=== PATIENT | female | born 1975 | race Caucasian/White ===

== ENCOUNTER → 2018-05-30 | Outpatient (REF) | payer OTHER, BC ==
[~2018-05-30] MED LIST: MAPA500T2 PO; MOM30SS PO; MOTR200T44 PO; PRENTAB26 PO
[2018-05-30 15:06] LABS: INFLUENZA A AMPLIFICATION POSITIVE (NEGATIVE); INFLUENZA B AMPLIFICATION NEGATIVE (NEGATIVE)
== END ==
LOC: M LAB REF 14:13
PROVIDERS: ATTEND Physician Assistant
DX: J11.1 Influenza due to unidentified influenza virus with other respiratory manifestations (principal)

== ENCOUNTER 2018-08-05 13:28 | Emergency (ER) | payer OTHER, BC ==
[~2018-08-05] VITALS: Ht 167.6 cm; Wt 82.7 kg
[2018-08-05] MEDS ORDERED: KETOROLAC 60 MG/2 ML VIAL (J1885) IM ONE (14:15)
[2018-08-05] MEDS ORDERED: NAPR-837 PO (14:55)
[2018-08-05 14:59] VITALS: BP 115/68
--- NOTE | 2018-08-06 07:20 | REP ---
REASON FOR EXAM: Known superficial thrombophlebitis with pain and swelling. TECHNIQUE: Multiple ultrasonographic images of the deep venous structures of the left thigh were obtained from the common femoral vein to the popliteal vein along with Doppler interrogation and color flow Doppler images. FINDINGS: There is no abnormal echogenic material seen within any of the visualized deep venous structures that would suggest acute thrombosis. Coaptation is unremarkable throughout. Doppler interrogation shows an expected response to respiratory variability and augmentation. The color flow images show what appears to be a normal vascular pattern throughout. IMPRESSION: There is no ultrasonographic evidence of deep venous thrombosis involving any of the visualized deep venous structures of the left thigh, as described above. Electronically Signed by Aaron Montano DO 08/06/2018 08:37 A
== END 2018-08-05 15:01 | disposition home or self-care (01) ==
LOC: M ED 13:28
DX: I80.02 Phlebitis and thrombophlebitis of superficial vessels of left lower extremity (principal); I73.9 Peripheral vascular disease, unspecified; Z88.0 Allergy status to penicillin; F17.210 Nicotine dependence, cigarettes, uncomplicated
CPT/HCPCS: 93971; 96372; 99283; J1885

== ENCOUNTER → 2019-09-10 | Outpatient (REF) | payer OTHER, BC ==
[~2019-09-10] MED LIST changes: +NAPR-837 PO
[2019-09-10 18:37] LABS: HEMATOCRIT 41.1 % (36.0-47.0); HEMOGLOBIN 13.9 g/dl (12.0-15.5); MEAN CORPUSCULAR HEMOGLOBIN 32.7 pg (27.0-33.0); MEAN CORPUSCULAR HGB CONC 33.8 g/dl (32.0-36.5); MEAN CORPUSCULAR VOLUME 96.7 fl (80.0-96.0); PLATELET COUNT, AUTOMATED 326 10^3/uL (150-450); RED BLOOD COUNT 4.25 10^6/uL (4.00-5.40); WHITE BLOOD COUNT 9.5 10^3/uL (4.0-10.0)
[2019-09-10 19:07] LABS: ALBUMIN 3.8 GM/DL (3.2-5.2); ALT/SGPT 130 U/L (12-78); BILIRUBIN,TOTAL 0.5 MG/DL (0.2-1.0); BLOOD UREA NITROGEN 16 MG/DL (7-18); CALCIUM LEVEL 9.1 MG/DL (8.5-10.1); CARBON DIOXIDE LEVEL 28 MEQ/L (21-32); CHLORIDE LEVEL 103 MEQ/L (98-107); CREATININE FOR GFR 0.99 MG/DL (0.55-1.30); GLOMERULAR FILTRATION RATE > 60.0 (>58); GLUCOSE, FASTING 84 MG/DL (70-100); POTASSIUM SERUM 4.5 MEQ/L (3.5-5.1); SODIUM LEVEL 137 MEQ/L (136-145); TOTAL PROTEIN 7.3 GM/DL (6.4-8.2)
[2019-09-11 08:36] LABS: TOTAL 25(OH) VITAMIN D 26.2 NG/ML (30.0-100.0)
== END ==
LOC: M SFHCPLAZ 15:51
PROVIDERS: ATTEND Physician Assistant
DX: F41.9 Anxiety disorder, unspecified (principal); F41.0 Panic disorder [episodic paroxysmal anxiety]; K21.9 Gastro-esophageal reflux disease without esophagitis; E55.9 Vitamin D deficiency, unspecified

== ENCOUNTER → 2019-10-07 | Outpatient (CLI) | payer OTHER, BC ==
[2019-10-07 12:28] LABS: INR 1.02; PROTHROMBIN TIME 13.1 SECONDS (11.8-14.0)
[2019-10-07 12:29] LABS: PARTIAL THROMBOPLASTIN TIME 25.2 SECONDS (25.0-38.4)
[2019-10-07 12:33] LABS: BASO % 0.4 % (0.0-1.0); EOS # 0.5 10^3/uL (0.0-0.5); EOS % 5.6 % (0.0-3.0); HEMATOCRIT 40.9 % (36.0-47.0); HEMOGLOBIN 13.7 g/dl (12.0-15.5); LYMPH # 1.3 10^3/uL (1.5-5.0); LYMPH % 13.6 % (24.0-44.0); MEAN CORPUSCULAR HEMOGLOBIN 32.6 pg (27.0-33.0); MEAN CORPUSCULAR HGB CONC 33.5 g/dl (32.0-36.5); MEAN CORPUSCULAR VOLUME 97.4 fl (80.0-96.0); MONO # 0.5 10^3/uL (0.0-0.8); MONO % 5.6 % (0.0-5.0); NEUTROPHILS % 74.3 % (36.0-66.0); PLATELET COUNT, AUTOMATED 327 10^3/uL (150-450); WHITE BLOOD COUNT 9.5 10^3/uL (4.0-10.0)
[2019-10-07 12:38] LABS: ALBUMIN 3.7 GM/DL (3.2-5.2); ALT/SGPT 147 U/L (12-78); BILIRUBIN,TOTAL 0.3 MG/DL (0.2-1.0); BLOOD UREA NITROGEN 15 MG/DL (7-18); CALCIUM LEVEL 9.1 MG/DL (8.5-10.1); CARBON DIOXIDE LEVEL 26 MEQ/L (21-32); CHLORIDE LEVEL 104 MEQ/L (98-107); CREATININE FOR GFR 0.94 MG/DL (0.55-1.30); GLOMERULAR FILTRATION RATE > 60.0 (>58); GLUCOSE, FASTING 103 MG/DL (70-100); POTASSIUM SERUM 4.1 MEQ/L (3.5-5.1); SODIUM LEVEL 140 MEQ/L (136-145)
== END ==
LOC: M WUC 10:52
PROVIDERS: ATTEND Physician Assistant
DX: R23.3 Spontaneous ecchymoses (principal)

== ENCOUNTER → 2019-10-25 | Outpatient (CLI) | payer OTHER, BC ==
--- NOTE | 2019-11-13 11:04 | REPMRS ---
Patient History The patient states she had a clinical breast exam in 09/2019. No known family history of cancer. No Hormone Replacement Therapy Digital Woman Screen Mammo: October 25, 2019 - Exam #: [id number] Bilateral CC and MLO view(s) were taken. Technologist: Carmina Meek, Technologist No prior studies available for comparison. FINDINGS: The breast tissue is heterogeneously dense. This may lower the sensitivity of mammography. The Volpara volumetric breast density category is: C. There is a 13 mm, well circumscribed nodular density in the subareolar regoin of the right breast which merits further evaluation. There is also a grouping of microcalcifications in the medial aspect of the right breast which merits further evaluation. There is no other evidence of dominant mass, architectural distortion, or grouped microcalcification typical of malignancy. 3-D tomosynthesis shows no additional findings. Report was delayed due to a protracted computer network disruption experienced by this facility. Assessment: BI-RADS/ACR category 0 mammogram, Incomplete: Need additional imaging evaluation and/or prior mammograms for comparison. Recommendation Ultrasound and special view mammogram of the right breast. This patient's Lifetime Breast Cancer RIsk is estimated at 11.1 %. This mammogram was interpreted with the aid of an FDA-approved computer-aided dectection system. Electronically Signed By: Shantanu Montaño MD 11/13/19 [id number]
== END ==
LOC: M WHC 17:46
PROVIDERS: ATTEND Obstetrics & Gynecology
DX: R92.2 Inconclusive mammogram (principal)

== ENCOUNTER → 2019-11-29 | Outpatient (CLI) | payer OTHER, BC ==
--- NOTE | 2019-12-19 11:56 | REP ---
DIAGNOSTIC MAMMOGRAM RIGHT BREAST AND RIGHT BREAST ULTRASOUND TECHNIQUE: Multiple spot compression magnification views of the right breast are performed and correlated with the recent baseline mammogram of 10/25/2019. These confirm the presence of a 13 mm fairly well circumscribed nodule in the right retroareolar region. Tiny calcifications are again visualized in the upper inner right breast. These appear to have a somewhat spherical orientation with linear calcifications along the periphery. I suspect these represent early calcifications of fat necrosis. They are probably benign. Real-time sonographic evaluation of the right retroareolar region is performed. At that location, a hypoechoic nodule is seen with internal blood flow with duplex Doppler evaluation. It measures 13 x 11 x 8 mm. IMPRESSION: ACR 4 suspicious. Right retroareolar nodule seen by mammography is solid by ultrasound. Recommend ultrasound-guided biopsy. Tiny calcifications in the upper inner right breast anteriorly demonstrate an appearance on magnification views, which are most suggestive of early calcifications of fat necrosis. These are probably benign. Recommend a six month follow-up mammogram of the right breast. However, if the patient or referring clinician would prefer biopsy, stereotactic biopsy could be performed. Patient letter 4. MTDD
== END ==
LOC: M WHC 08:07
PROVIDERS: ATTEND Obstetrics & Gynecology
DX: Z12.31 Encounter for screening mammogram for malignant neoplasm of breast (principal); N63.10 Unspecified lump in the right breast, unspecified quadrant; N60.01 Solitary cyst of right breast

== ENCOUNTER 2020-02-26 11:55 | Emergency (ER) | payer OTHER, BC ==
[~2020-02-26] VITALS: Ht 167.6 cm; Wt 92.3 kg
[2020-02-26] MEDS ORDERED: OMEP10CASR PO (12:08)
[2020-02-26 14:10] LABS: BASO % 0.6 % (0.0-1.0); EOS # 0.3 10^3/uL (0.0-0.5); EOS % 3.6 % (0.0-3.0); HEMATOCRIT 39.7 % (36.0-47.0); HEMOGLOBIN 12.9 g/dl (12.0-15.5); LYMPH # 1.7 10^3/uL (1.5-5.0); LYMPH % 23.6 % (24.0-44.0); MEAN CORPUSCULAR HEMOGLOBIN 31.5 pg (27.0-33.0); MEAN CORPUSCULAR HGB CONC 32.5 g/dl (32.0-36.5); MEAN CORPUSCULAR VOLUME 97.1 fl (80.0-96.0); MONO # 0.5 10^3/uL (0.0-0.8); MONO % 6.9 % (0.0-5.0); NEUTROPHILS # 4.6 10^3/uL (1.5-8.5); NEUTROPHILS % 64.9 % (36.0-66.0); PLATELET COUNT, AUTOMATED 262 10^3/uL (150-450); RED BLOOD COUNT 4.09 10^6/uL (4.00-5.40); WHITE BLOOD COUNT 7.1 10^3/uL (4.0-10.0)
[2020-02-26 14:31] LABS: BLOOD UREA NITROGEN 20 MG/DL (7-18); CALCIUM LEVEL 8.7 MG/DL (8.5-10.1); CARBON DIOXIDE LEVEL 25 MEQ/L (21-32); CHLORIDE LEVEL 107 MEQ/L (98-107); CREATININE FOR GFR 1.06 MG/DL (0.55-1.30); GLOMERULAR FILTRATION RATE > 60.0 (>58); GLUCOSE, FASTING 102 MG/DL (70-100); POTASSIUM SERUM 4.3 MEQ/L (3.5-5.1); SODIUM LEVEL 137 MEQ/L (136-145)
[2020-02-26 14:43] LABS: VITAMIN B12 LEVEL 731 PG/ML (247-911)
[2020-02-26 15:16] VITALS: BP 125/86
== END 2020-02-26 15:17 | disposition home or self-care (01) ==
LOC: M ED 11:55
DX: R20.2 Paresthesia of skin (principal); Z86.718 Personal history of other venous thrombosis and embolism; F41.9 Anxiety disorder, unspecified; F17.200 Nicotine dependence, unspecified, uncomplicated; Z88.0 Allergy status to penicillin

== ENCOUNTER → 2020-02-28 | Outpatient (REF) | payer OTHER, BC ==
[~2020-02-28] MED LIST changes: +OMEP10CASR PO
[2020-02-28 13:33] LABS: C REACTIVE PROTEIN QUANTITATIV < 0.30 MG/DL (0.00-0.30); FREE T4 1.06 NG/DL (0.76-1.46); MAGNESIUM LEVEL 2.1 MG/DL (1.8-2.4)
== END ==
LOC: M SFHCPLAZ 11:58
PROVIDERS: ATTEND Nurse Practitioner Family
DX: R20.2 Paresthesia of skin (principal)

== ENCOUNTER → 2020-03-04 | Outpatient (CLI) | payer OTHER, BC ==
[2020-03-04 15:45] LABS: RHEUMATOID FACTOR QUANT < 10.0 IU/ML (<15.0); TOTAL PROTEIN 7.7 GM/DL (6.4-8.2)
[2020-03-04 16:30] LABS: HEMOGLOBIN A1c 5.4 %
[2020-03-06 11:21] LABS: ALBUMIN 4.43 GM/DL (3.29-5.55); ALBUMIN % 57.5 % (55.8-66.1); ALPHA-1-GLOBULIN % 4.2 % (2.9-4.9); ALPHA-1-GLOBULINS 0.32 GM/DL (0.17-0.41); ALPHA-2-GLOBULINS 0.89 GM/DL (0.42-0.99); ALPHA-2-GLOBULINS % 11.5 % (7.1-11.8); BETA-1-GLOBULINS % 6.8 % (4.7-7.2)
[2020-03-06 11:22] LABS: BETA-1-GLOBULINS 0.52 GM/DL (0.28-0.60); BETA-2-GLOBULINS 0.54 GM/DL (0.19-0.55)
[2020-03-09 16:11] LABS: ANTINUCLEAR ANTIBODIES DIRECT Negative (Negative); VITAMIN B1 LEVEL WHOLE BLOOD 152.8 nmol/L (66.5-200.0); VITAMIN B6,PYRIDOXAL PHOSPHATE 31.6 ug/L (2.0-32.8); VITAMIN E(ALPHA TOCOPHEROL) 12.2 mg/L (7.0-25.1); VITAMIN E(GAMMA TOCOPHEROL) 1.7 mg/L (0.5-5.5)
== END ==
LOC: M PLALAB 13:20
PROVIDERS: ATTEND Psychiatry & Neurology Neurology
DX: G62.9 Polyneuropathy, unspecified (principal); R20.0 Anesthesia of skin

== ENCOUNTER → 2020-05-04 | Outpatient (CLI) | payer OTHER, BC | LOC: M PLALAB 13:39 | DX: G37.3 Acute transverse myelitis in demyelinating disease of central nervous system (principal) ==

== ENCOUNTER → 2020-05-06 | Outpatient (CLI) | payer OTHER, BC ==
[2020-05-06 18:45] LABS: PLATELET COUNT, AUTOMATED 326 10^3/uL (150-450)
[2020-05-06 18:55] LABS: INR 0.81; PROTHROMBIN TIME 11.4 SECONDS (12.5-14.3)
== END ==
LOC: M PLALAB 14:57
DX: G37.3 Acute transverse myelitis in demyelinating disease of central nervous system (principal)

== ENCOUNTER → 2020-07-02 | Outpatient (CLI) | payer OTHER, BC | LOC: M WUC 11:45 | DX: G37.3 Acute transverse myelitis in demyelinating disease of central nervous system (principal); D72.9 Disorder of white blood cells, unspecified ==

== ENCOUNTER → 2020-10-25 | Outpatient (REF) | payer OTHER, BC | LOC: M WUC 19:47 | PROVIDERS: ATTEND Physician Assistant | DX: R30.0 Dysuria (principal) ==

== ENCOUNTER → 2020-12-04 | Outpatient (CLI) | payer OTHER, BC ==
[~2020-12-04] MED LIST changes: +GASTROGRAFIN SOLUTION 30ML (Q9963) As Ordered ONE
--- NOTE | 2020-12-06 04:48 | REP ---
INDICATION: WT LOSS COMPARISON: None TECHNIQUE: Axial images from the lung bases to the pubic symphysis with coronal and sagittal reformations after the administration of oral contrast material. This CT examination was performed using the following dose reduction techniques: Automated exposure control, adjustment of mA and/or kv according to the patient's size, and use of iterative reconstruction technique. FINDINGS: Lung bases are clear. Visualized heart and pericardium normal. Liver, spleen, pancreas, gallbladder, bilateral adrenal glands and kidneys are normal. The enteric system is unremarkable and without obstruction or acute inflammatory process. Normal terminal ileum and cecum identified in the right lower quadrant. Pelvis demonstrates normal bladder and age-appropriate uterus/adnexa. No ascites. No free air. No adenopathy. No focal inflammatory stranding. Abdominal aorta without aneurysm. Musculoskeletal structures are intact and without acute osseous abnormality. IMPRESSION: No acute abdominopelvic pathology appreciated. <Electronically signed by Froylan Schulz > 12/06/20 [id number]
== END ==
LOC: M RAD 10:26
PROVIDERS: ATTEND Physician Assistant
DX: R63.4 Abnormal weight loss (principal)
CPT/HCPCS: 74176; Q9963

== ENCOUNTER → 2021-08-29 | Outpatient (CLI) | payer BC ==
[~2021-08-29] MED LIST changes: +ERGO500029 PO; -GASTROGRAFIN SOLUTION 30ML (Q9963) As Ordered ONE; +ONDA4TAB6
== END ==
LOC: M LABSMTC 10:31
PROVIDERS: ATTEND Anesthesiology
DX: Z01.812 Encounter for preprocedural laboratory examination (principal)

== ENCOUNTER 2021-09-03 10:17 | Day surgery (SDC) | payer BC ==
[~2021-09-03] VITALS: Ht 167.6 cm; Wt 78.5 kg
[~2021-09-03 10:17] MED LIST changes: +NS 1,000 ML IV ONE
[2021-09-03] MEDS ORDERED: LIDOCAINE 2% 100MG/5ML SDV (FOR ANES.) As Ordered ONE (11:06)
[2021-09-03] MEDS ORDERED: propofoL 200 MG/20 ML VIAL As Ordered ONE ×2 (11:06→11:55)
[2021-09-03] MEDS ORDERED: fentaNYL 100 MCG/2 ML INJECTION As Ordered ONE (11:31)
[2021-09-03 12:20] VITALS: BP 133/83
== END 2021-09-03 12:37 | disposition home or self-care (01) ==
LOC: M OPP 10:17
PROVIDERS: ATTEND Internal Medicine Gastroenterology
DX: K63.5 Polyp of colon (principal); K64.8 Other hemorrhoids; R19.4 Change in bowel habit; R63.4 Abnormal weight loss; R11.0 Nausea; Z80.6 Family history of leukemia; Z79.899 Other long term (current) drug therapy; F17.200 Nicotine dependence, unspecified, uncomplicated
CPT/HCPCS: 43235; 45385; 88305; J3010

== ENCOUNTER → 2022-04-12 | Outpatient (CLI) | payer BC ==
[~2022-04-12] MED LIST changes: -NS 1,000 ML IV ONE
[2022-04-12 12:35] LABS: BASO # 0.1 10^3/uL (0.0-0.2); BASO % 0.9 % (0.0-1.0); EOS # 0.2 10^3/uL (0.0-0.5); EOS % 3.2 % (0.0-3.0); HEMATOCRIT 42.2 % (36.0-47.0); HEMOGLOBIN 13.5 g/dl (12.0-15.5); LYMPH # 1.6 10^3/uL (1.5-5.0); LYMPH % 21.7 % (24.0-44.0); MEAN CORPUSCULAR HEMOGLOBIN 31.5 pg (27.0-33.0); MEAN CORPUSCULAR VOLUME 98.6 fl (80.0-96.0); MONO # 0.5 10^3/uL (0.0-0.8); MONO % 7.1 % (2.0-8.0); NEUTROPHILS % 66.6 % (36.0-66.0); PLATELET COUNT, AUTOMATED 456 10^3/uL (150-450); RED BLOOD COUNT 4.28 10^6/uL (4.00-5.40); WHITE BLOOD COUNT 7.5 10^3/uL (4.0-10.0)
[2022-04-12 13:09] LABS: FREE T4 1.22 NG/DL (0.89-1.76); THYROID STIMULATING HORMONE 1.721 uIU/ML (0.55-4.78)
[2022-04-12 13:10] LABS: HEMOGLOBIN A1c 4.9 % (4.0-6.0); LUTEINIZING HORMONE 23.2 mIU/ML; PROLACTIN 4.41 NG/ML
[2022-04-12 13:12] LABS: ALBUMIN 3.9 G/DL (3.2-5.2); ALKALINE PHOSPHATASE 112 U/L (46-116); ALT/SGPT 66 U/L (7.0-40); AST/SGOT 44 U/L (<34); BILIRUBIN,TOTAL 0.3 MG/DL (0.3-1.2); BLOOD UREA NITROGEN 20 MG/DL (9-23); CALCIUM LEVEL 9.8 MG/DL (8.5-10.1); CARBON DIOXIDE LEVEL 28 MMOL/L (20-31); CHLORIDE LEVEL 101 MMOL/L (98-107); CHOLESTEROL LEVEL 194 MG/DL (<200); CHOLESTEROL RISK RATIO 2.01 (<5); CREATININE FOR GFR 0.77 MG/DL (0.55-1.30); GLOMERULAR FILTRATION RATE > 60.0 (>58); GLUCOSE, FASTING 86 MG/DL (60-100); HDL CHOLESTEROL 96.2 MG/DL (>40); NON-HDL-C 98 MG/DL; POTASSIUM SERUM 4.2 MMOL/L (3.5-5.1); SODIUM LEVEL 138 MMOL/L (136-145); TOTAL PROTEIN 7.6 G/DL (5.7-8.2); TRIGLYCERIDES LEVEL 84 MG/DL (<150)
== END ==
LOC: M WUC 10:02
PROVIDERS: ATTEND Physician Assistant
DX: N92.6 Irregular menstruation, unspecified (principal); K21.9 Gastro-esophageal reflux disease without esophagitis; E55.9 Vitamin D deficiency, unspecified; Z68.22 Body mass index [BMI] 22.0-22.9, adult

== ENCOUNTER → 2022-04-18 | Outpatient (CLI) | payer BC | LOC: M RAD 15:33 | PROVIDERS: ATTEND Physician Assistant | DX: N92.6 Irregular menstruation, unspecified (principal) ==

== ENCOUNTER → 2022-05-31 | Outpatient (CLI) | payer BC | LOC: M RAD 09:35 | PROVIDERS: ATTEND Surgery Vascular Surgery | DX: I87.2 Venous insufficiency (chronic) (peripheral) (principal); I83.813 Varicose veins of bilateral lower extremities with pain ==

== ENCOUNTER → 2022-06-24 | Outpatient (REF) | payer BC | LOC: M SFHCADAM 16:04 | PROVIDERS: ATTEND Physician Assistant | DX: R09.89 Other specified symptoms and signs involving the circulatory and respiratory systems (principal) ==

== ENCOUNTER → 2022-07-05 | Outpatient (CLI) | payer BC ==
[2022-07-05 17:50] LABS: ALBUMIN 3.7 G/DL (3.2-5.2); BILIRUBIN,DIRECT 0.3 MG/DL (<0.4); BILIRUBIN,TOTAL 0.8 MG/DL (0.3-1.2); TOTAL PROTEIN 6.8 G/DL (5.7-8.2)
== END ==
LOC: M WUC 11:22
PROVIDERS: ATTEND Physician Assistant
DX: R74.8 Abnormal levels of other serum enzymes (principal)

== ENCOUNTER → 2022-11-18 | Outpatient (CLI) | payer BC | LOC: M WHC 10:40 | PROVIDERS: ATTEND Obstetrics & Gynecology | DX: N89.8 Other specified noninflammatory disorders of vagina (principal) ==

== ENCOUNTER → 2022-11-29 | Outpatient (REF) | payer BC | LOC: M LAB REF 11:38 | PROVIDERS: ATTEND Physician Assistant Medical | DX: R07.0 Pain in throat (principal) ==

== ENCOUNTER → 2023-01-20 | Outpatient (CLI) | payer BC ==
[2023-01-20 17:28] LABS: BASO # 0.1 10^3/uL (0.0-0.2); BASO % 1.3 % (0.0-1.0); EOS # 0.4 10^3/uL (0.0-0.5); EOS % 7.2 % (0.0-3.0); HEMATOCRIT 41.8 % (36.0-47.0); HEMOGLOBIN 13.4 g/dl (12.0-15.5); LYMPH # 1.4 10^3/uL (1.5-5.0); MEAN CORPUSCULAR HGB CONC 32.1 g/dl (32.0-36.5); MEAN CORPUSCULAR VOLUME 99.8 fl (80.0-96.0); MONO # 0.6 10^3/uL (0.0-0.8); MONO % 9.1 % (2.0-8.0); NEUTROPHILS # 3.6 10^3/uL (1.5-8.5); NEUTROPHILS % 59.1 % (36.0-66.0); PLATELET COUNT, AUTOMATED 298 10^3/uL (150-450); RED BLOOD COUNT 4.19 10^6/uL (4.00-5.40); WHITE BLOOD COUNT 6.1 10^3/uL (4.0-10.0)
[2023-01-20 17:59] LABS: ALBUMIN 3.8 G/DL (3.2-5.2); ALKALINE PHOSPHATASE 76 U/L (46-116); ALT/SGPT 53 U/L (7.0-40); AST/SGOT 34 U/L (<34); BILIRUBIN,TOTAL 0.5 MG/DL (0.3-1.2); BLOOD UREA NITROGEN 14 MG/DL (9-23); CALCIUM LEVEL 9.3 MG/DL (8.5-10.1); CARBON DIOXIDE LEVEL 28 MMOL/L (20-31); CHLORIDE LEVEL 104 MMOL/L (98-107); CHOLESTEROL LEVEL 228 MG/DL (<200); CHOLESTEROL RISK RATIO 2.36 (<5); GLOMERULAR FILTRATION RATE > 60.0 (>58); GLUCOSE, FASTING 91 MG/DL (60-100); HDL CHOLESTEROL 96.6 MG/DL (>40); LDL CHOLESTEROL 113.4 MG/DL (<100); NON-HDL-C 131.4 MG/DL; POTASSIUM SERUM 4.2 MMOL/L (3.5-5.1); SODIUM LEVEL 140 MMOL/L (136-145); TOTAL PROTEIN 7.1 G/DL (5.7-8.2); TRIGLYCERIDES LEVEL 90 MG/DL (<150)
[2023-01-20 18:00] LABS: FOLATE 13.53 NG/ML (>5.4)
[2023-01-20 18:02] LABS: VITAMIN B12 LEVEL 1212 PG/ML (211-911)
== END ==
LOC: M WUC 11:10
PROVIDERS: ATTEND Physician Assistant
DX: G57.93 Unspecified mononeuropathy of bilateral lower limbs (principal); R74.8 Abnormal levels of other serum enzymes

== ENCOUNTER 2023-03-20 07:33 | Emergency (ER) | payer BC ==
[~2023-03-20] VITALS: Ht 167.6 cm; Wt 88.0 kg
[2023-03-20 08:34] LABS: BASO # 0.1 10^3/uL (0.0-0.2); BASO % 0.7 % (0.0-1.0); EOS # 0.2 10^3/uL (0.0-0.5); HEMATOCRIT 39.9 % (36.0-47.0); HEMOGLOBIN 13.7 g/dl (12.0-15.5); MEAN CORPUSCULAR HEMOGLOBIN 32.2 pg (27.0-33.0); MEAN CORPUSCULAR HGB CONC 34.3 g/dl (32.0-36.5); MEAN CORPUSCULAR VOLUME 93.7 fl (80.0-96.0); MONO # 0.5 10^3/uL (0.0-0.8); MONO % 5.1 % (2.0-8.0); NEUTROPHILS # 7.6 10^3/uL (1.5-8.5); NEUTROPHILS % 80.7 % (36.0-66.0); PLATELET COUNT, AUTOMATED 332 10^3/uL (150-450); RED BLOOD COUNT 4.26 10^6/uL (4.00-5.40); WHITE BLOOD COUNT 9.5 10^3/uL (4.0-10.0)
[2023-03-20 08:56] LABS: BLOOD UREA NITROGEN 14 MG/DL (9-23); CALCIUM LEVEL 8.9 MG/DL (8.5-10.1); CARBON DIOXIDE LEVEL 24 MMOL/L (20-31); CHLORIDE LEVEL 104 MMOL/L (98-107); CREATININE FOR GFR 0.65 MG/DL (0.55-1.30); GLOMERULAR FILTRATION RATE > 60.0 (>58); GLUCOSE, FASTING 104 MG/DL (60-100); POTASSIUM SERUM 4.1 MMOL/L (3.5-5.1); SODIUM LEVEL 138 MMOL/L (136-145)
[2023-03-20] MEDS ORDERED: CHLORTHALIDONE 12.5MG PER 1/2 TABLET PO ONE (09:10)
[2023-03-20] MEDS ORDERED: CHLO125TA PO (09:38)
[2023-03-20 11:00] VITALS: BP 155/78; TEMP 98.4; O2SAT 98
== END 2023-03-20 11:00 | disposition home or self-care (01) ==
LOC: M ED 07:33
DX: I10 Essential (primary) hypertension (principal); K21.9 Gastro-esophageal reflux disease without esophagitis; Z79.83 Long term (current) use of bisphosphonates; Z79.899 Other long term (current) drug therapy

== ENCOUNTER → 2023-03-24 | Outpatient (REF) | payer BC ==
[~2023-03-24] MED LIST changes: +CHLO125TA PO
[2023-03-24 17:21] LABS: BLOOD UREA NITROGEN 17 MG/DL (9-23); CALCIUM LEVEL 9.3 MG/DL (8.5-10.1); CARBON DIOXIDE LEVEL 32 MMOL/L (20-31); CHLORIDE LEVEL 102 MMOL/L (98-107); CREATININE FOR GFR 0.79 MG/DL (0.55-1.30); GLOMERULAR FILTRATION RATE > 60.0 (>58); GLUCOSE, FASTING 97 MG/DL (60-100); POTASSIUM SERUM 4.8 MMOL/L (3.5-5.1); SODIUM LEVEL 138 MMOL/L (136-145)
== END ==
LOC: M SFHCADAM 14:43
PROVIDERS: ATTEND Physician Assistant
DX: I10 Essential (primary) hypertension (principal)

== ENCOUNTER → 2023-04-12 | Outpatient (CLI) | payer BC ==
[~2023-04-12] MED LIST changes: +GASTROGRAFIN SOLUTION 30ML As Ordered ONE; +ISOVUE-370 76% 100ML VIAL As Ordered ONE
== END ==
LOC: M RAD 14:08
PROVIDERS: ATTEND Physician Assistant
DX: R10.2 Pelvic and perineal pain (principal); R42 Dizziness and giddiness
CPT/HCPCS: 70551; 74177; Q9963; Q9967

== ENCOUNTER → 2023-05-12 | Outpatient (CLI) | payer BC ==
[~2023-05-12] MED LIST changes: -GASTROGRAFIN SOLUTION 30ML As Ordered ONE; -ISOVUE-370 76% 100ML VIAL As Ordered ONE
== END ==
LOC: M PLARAD 12:38
PROVIDERS: ATTEND Psychiatry & Neurology Neurology
DX: G37.3 Acute transverse myelitis in demyelinating disease of central nervous system (principal)

== ENCOUNTER → 2023-05-19 | Outpatient (CLI) | payer BC | LOC: M PLARAD 14:38 | PROVIDERS: ATTEND Psychiatry & Neurology Neurology | DX: G37.3 Acute transverse myelitis in demyelinating disease of central nervous system (principal) ==

== ENCOUNTER → 2023-05-23 | Outpatient (CLI) | payer BC ==
[2023-05-25 19:22] LABS: FREE KAPPA LIGHT CHAINS SERUM 22.9 mg/L (3.3-19.4); FREE LAMBDA LIGHT CHAINS SERUM 15.2 mg/L (5.7-26.3); IMMUNOTYPING SERUM IGA SO 413 mg/dL (87-352); IMMUNOTYPING SERUM IGM SO 90 mg/dL (26-217); KAPPA/LAMBDA RATIO SERUM 1.51 (0.26-1.65)
== END ==
LOC: M WUC 11:35
PROVIDERS: ATTEND Internal Medicine
DX: D47.2 Monoclonal gammopathy (principal)

== ENCOUNTER → 2023-05-23 | Outpatient (CLI) | payer BC ==
[2023-05-23 16:50] LABS: BASO # 0.1 10^3/uL (0.0-0.2); BASO % 1.4 % (0.0-1.0); EOS # 0.4 10^3/uL (0.0-0.5); EOS % 4.9 % (0.0-3.0); HEMATOCRIT 42.1 % (36.0-47.0); HEMOGLOBIN 14.3 g/dl (12.0-15.5); LYMPH % 27.9 % (24.0-44.0); MEAN CORPUSCULAR HEMOGLOBIN 32.4 pg (27.0-33.0); MEAN CORPUSCULAR VOLUME 95.5 fl (80.0-96.0); MONO # 0.5 10^3/uL (0.0-0.8); NEUTROPHILS # 4.2 10^3/uL (1.5-8.5); NEUTROPHILS % 58.7 % (36.0-66.0); PLATELET COUNT, AUTOMATED 332 10^3/uL (150-450); RED BLOOD COUNT 4.41 10^6/uL (4.00-5.40); WHITE BLOOD COUNT 7.1 10^3/uL (4.0-10.0)
[2023-05-23 17:00] LABS: HEMOGLOBIN A1c 5.2 % (4.0-6.0)
[2023-05-23 17:23] LABS: ALKALINE PHOSPHATASE 81 U/L (46-116); ALT/SGPT 73 U/L (7.0-40); AST/SGOT 51 U/L (<34); BILIRUBIN,TOTAL 0.7 MG/DL (0.3-1.2); BLOOD UREA NITROGEN 15 MG/DL (9-23); CALCIUM LEVEL 8.6 MG/DL (8.5-10.1); CARBON DIOXIDE LEVEL 31 MMOL/L (20-31); CHLORIDE LEVEL 99 MMOL/L (98-107); CREATININE FOR GFR 0.81 MG/DL (0.55-1.30); GLOMERULAR FILTRATION RATE > 60.0 (>58); GLUCOSE, FASTING 117 MG/DL (60-100); POTASSIUM SERUM 3.6 MMOL/L (3.5-5.1); SODIUM LEVEL 136 MMOL/L (136-145); TOTAL PROTEIN 7.4 G/DL (5.7-8.2)
[2023-05-23 17:25] LABS: FREE T4 1.24 NG/DL (0.89-1.76); VITAMIN B12 LEVEL 1000 PG/ML (211-911)
[2023-05-31 04:44] LABS: IMMUNOTYPING SERUM IGA SO 448 mg/dL (87-352); IMMUNOTYPING SERUM IGM SO 102 mg/dL (26-217); Methylmalonic Acid 181 nmol/L (0-378)
== END ==
LOC: M WUC 11:27
PROVIDERS: ATTEND Psychiatry & Neurology Neurology
DX: G37.3 Acute transverse myelitis in demyelinating disease of central nervous system (principal)

== ENCOUNTER → 2023-12-18 | Outpatient (CLI) | payer BC ==
[~2023-12-18] MED LIST changes: +ONDA-282; -ONDA4TAB6
[2023-12-18 18:38] LABS: BASO # 0.1 10^3/uL (0.0-0.2); BASO % 1.6 % (0.0-1.0); EOS # 0.1 10^3/uL (0.0-0.5); EOS % 2.3 % (0.0-3.0); HEMATOCRIT 44.1 % (36.0-47.0); HEMOGLOBIN 14.5 g/dl (12.0-15.5); LYMPH # 1.2 10^3/uL (1.5-5.0); LYMPH % 20.8 % (24.0-44.0); MEAN CORPUSCULAR HEMOGLOBIN 32.6 pg (27.0-33.0); MEAN CORPUSCULAR HGB CONC 32.9 g/dl (32.0-36.5); MEAN CORPUSCULAR VOLUME 99.1 fl (80.0-96.0); MONO # 0.4 10^3/uL (0.0-0.8); MONO % 7.8 % (2.0-8.0); NEUTROPHILS # 3.8 10^3/uL (1.5-8.5); NEUTROPHILS % 66.8 % (36.0-66.0); PLATELET COUNT, AUTOMATED 320 10^3/uL (150-450); RED BLOOD COUNT 4.45 10^6/uL (4.00-5.40); WHITE BLOOD COUNT 5.7 10^3/uL (4.0-10.0)
[2023-12-18 18:56] LABS: IMMUNOGLOBULIN A 332.2 MG/DL (40-350); IMMUNOGLOBULIN G 921 MG/DL (650-1600)
[2023-12-18 18:57] LABS: ALBUMIN 3.8 G/DL (3.2-5.2); ALKALINE PHOSPHATASE 90 U/L (46-116); ALT/SGPT 93 U/L (7.0-40); AST/SGOT 80 U/L (<34); BILIRUBIN,TOTAL 0.3 MG/DL (0.3-1.2); BLOOD UREA NITROGEN 17 MG/DL (9-23); CALCIUM LEVEL 9.8 MG/DL (8.5-10.1); CARBON DIOXIDE LEVEL 30 MMOL/L (20-31); CHLORIDE LEVEL 100 MMOL/L (98-107); CREATININE FOR GFR 0.99 MG/DL (0.55-1.30); GLOMERULAR FILTRATION RATE > 60.0 (>58); GLUCOSE, FASTING 85 MG/DL (60-100); POTASSIUM SERUM 4.2 MMOL/L (3.5-5.1); SODIUM LEVEL 137 MMOL/L (136-145); TOTAL PROTEIN 7.6 G/DL (5.7-8.2)
[2023-12-20 23:58] LABS: T P ELECTROPHORESIS SO 7.5 g/dL (6.1-8.1)
[2023-12-21 14:17] LABS: FREE KAPPA LIGHT CHAINS SERUM 24.7 mg/L (3.3-19.4); KAPPA/LAMBDA RATIO SERUM 1.24 (0.26-1.65)
== END ==
LOC: M WUC 10:25
PROVIDERS: ATTEND Internal Medicine
DX: D47.2 Monoclonal gammopathy (principal)

== ENCOUNTER → 2024-01-12 | Outpatient (CLI) | payer BC ==
[2024-01-12 19:34] LABS: BASO # 0.1 10^3/uL (0.0-0.2); EOS # 0.4 10^3/uL (0.0-0.5); EOS % 5.2 % (0.0-3.0); HEMATOCRIT 40.2 % (36.0-47.0); HEMOGLOBIN 13.5 g/dl (12.0-15.5); LYMPH # 1.9 10^3/uL (1.5-5.0); LYMPH % 26.8 % (24.0-44.0); MEAN CORPUSCULAR HEMOGLOBIN 33.1 pg (27.0-33.0); MEAN CORPUSCULAR HGB CONC 33.6 g/dl (32.0-36.5); MEAN CORPUSCULAR VOLUME 98.5 fl (80.0-96.0); MONO # 0.5 10^3/uL (0.0-0.8); MONO % 6.9 % (2.0-8.0); NEUTROPHILS # 4.2 10^3/uL (1.5-8.5); NEUTROPHILS % 59.8 % (36.0-66.0); PLATELET COUNT, AUTOMATED 361 10^3/uL (150-450); RED BLOOD COUNT 4.08 10^6/uL (4.00-5.40)
[2024-01-12 19:53] LABS: FREE T4 1.29 NG/DL (0.89-1.76); THYROID STIMULATING HORMONE 2.002 uIU/ML (0.55-4.78)
[2024-01-12 19:55] LABS: ALBUMIN 3.7 G/DL (3.2-5.2); ALKALINE PHOSPHATASE 83 U/L (35-104); ALT/SGPT 68 U/L (7.0-40); AST/SGOT 43 U/L (<34); BILIRUBIN,TOTAL 0.6 MG/DL (0.3-1.2); BLOOD UREA NITROGEN 18 MG/DL (9-23); CALCIUM LEVEL 10.2 MG/DL (8.5-10.1); CARBON DIOXIDE LEVEL 30 MMOL/L (20-31); CHLORIDE LEVEL 104 MMOL/L (98-107); CHOLESTEROL LEVEL 222 MG/DL (<200); CHOLESTEROL RISK RATIO 2.43 (<5); CREATININE FOR GFR 0.75 MG/DL (0.55-1.30); GLOMERULAR FILTRATION RATE > 60.0 (>58); GLUCOSE, FASTING 94 MG/DL (60-100); HDL CHOLESTEROL 91.3 MG/DL (>40); LDL CHOLESTEROL 113.3 MG/DL (<100); NON-HDL-C 130.7 MG/DL; POTASSIUM SERUM 3.9 MMOL/L (3.5-5.1); SODIUM LEVEL 139 MMOL/L (136-145); TOTAL PROTEIN 7.1 G/DL (5.7-8.2); TRIGLYCERIDES LEVEL 87 MG/DL (<150)
[2024-01-12 20:06] LABS: HEMOGLOBIN A1c 5.3 % (4.0-6.0)
== END ==
LOC: M WUC 11:45
PROVIDERS: ATTEND Physician Assistant
DX: I10 Essential (primary) hypertension (principal); R10.2 Pelvic and perineal pain; G37.3 Acute transverse myelitis in demyelinating disease of central nervous system; K21.9 Gastro-esophageal reflux disease without esophagitis

== ENCOUNTER → 2024-02-20 | Outpatient (CLI) | payer BC | LOC: M RAD 08:00 | PROVIDERS: ATTEND Physician Assistant | DX: R74.8 Abnormal levels of other serum enzymes (principal); R93.2 Abnormal findings on diagnostic imaging of liver and biliary tract; R93.3 Abnormal findings on diagnostic imaging of other parts of digestive tract ==

== ENCOUNTER → 2024-06-14 | Outpatient (CLI) | payer BC | LOC: M RAD 07:21 | PROVIDERS: ATTEND Physician Assistant | DX: K82.4 Cholesterolosis of gallbladder (principal); K76.0 Fatty (change of) liver, not elsewhere classified ==

== ENCOUNTER → 2024-07-03 | Outpatient (REF) | payer BC ==
[2024-07-03 13:19] LABS: TOTAL 25(OH) VITAMIN D 15.7 NG/ML (20.0-100.0)
[2024-07-03 13:21] LABS: BLOOD UREA NITROGEN 19 MG/DL (9-23); CALCIUM LEVEL 9.8 MG/DL (8.5-10.1); CARBON DIOXIDE LEVEL 33 MMOL/L (20-31); CHLORIDE LEVEL 97 MMOL/L (98-107); CREATININE FOR GFR 0.74 MG/DL (0.55-1.30); GLOMERULAR FILTRATION RATE > 90.0 (>58); GLUCOSE, FASTING 83 MG/DL (60-100); PTH INTACT 79.9 PG/ML (18.5-88.0); SODIUM LEVEL 141 MMOL/L (136-145)
== END ==
LOC: M LABWUC 12:15
PROVIDERS: ATTEND Physician Assistant
DX: E83.52 Hypercalcemia (principal)

== ENCOUNTER → 2024-07-04 | Outpatient (CLI) | payer BC ==
[2024-07-04 13:36] LABS: C REACTIVE PROTEIN QUANTITATIV < 0.50 MG/DL (<1.0)
[2024-07-08 15:32] LABS: ANA PATTERN Nuclear, Speckled (NEGATIVE); ANA SCREEN, IFA POSITIVE (NEGATIVE); ANA TITER 1:40 titer (<1:40)
== END ==
LOC: M WUC 11:21
PROVIDERS: ATTEND Physician Assistant
DX: R21 Rash and other nonspecific skin eruption (principal); G37.3 Acute transverse myelitis in demyelinating disease of central nervous system

== ENCOUNTER → 2024-07-30 | Outpatient (REF) | payer BC | LOC: M SFHCADAM 10:05 | PROVIDERS: ATTEND Physician Assistant | DX: R76.8 Other specified abnormal immunological findings in serum (principal) ==